=== PATIENT | male | born 1995 | race African-American/Black ===

== ENCOUNTER 2022-01-30 07:57 | Inpatient (IN) | payer OTHER ==
[~2022-01-30] VITALS: Ht 170.2 cm; Wt 54.4 kg
[2022-01-30 07:58] VITALS: BP 152/85
--- NOTE | 2022-01-30 07:59 | NUR ---
NAVEED MEEHAN VIA GURNEY TO BED 01.
--- NOTE | 2022-01-30 08:00 | NUR ---
DR GUERRERO AT BEDSIDE EVALUATING PT
--- NOTE | 2022-01-30 08:00 | NUR ---
27 Y/O MALE BIBA C/O GENERALIZED BODY RASH W/ MULTIPLE PUSTULES ALL OVER BODY X2 DAYS. PT REPORTS SKIN WAS CLEAR X2DAYS AGO EXCEPT FOR PIMPLES ON HIS FOREHEAD WHICH HE POPPED ON MONDAY. PT STATES HE WOKE UP THIS MPORNING WITH BODY COVERED IN RASH. PT REPORTS SUBJECTIVE FEVER/CHILLS. PT DENIES N/V/D. PT DENIES TAKING ANY MEDICATION PRIOR TO ARRIVAL. PMH: ASTHMA MEDS: DENIES NKA
[2022-01-30] MEDS ORDERED: KETOROLAC 15 MG/ML VIAL IVP ONE (08:10)
[2022-01-30] MEDS ORDERED: NACL 0.9% 1,000 ML IV ONE (08:10)
[2022-01-30] MEDS ORDERED: MORPHINE SULFATE 4 MG/ML SYR IVP ONE ×2 (08:10→10:45)
--- NOTE | 2022-01-30 08:22 | NUR ---
offered pt a urinal
--- NOTE | 2022-01-30 08:34 | NUR ---
XR AT BEDSIDE
[2022-01-30 08:53] LABS: BASOPHILS % (AUTO) 0.2 % (0.0-2.0); EOSINOPHILS % (AUTO) 0.1 % (0.0-4.0); HEMATOCRIT 46.3 % (36-52); HEMOGLOBIN 15.4 g/dL (12.0-18.0); LYMPHOCYTES # (AUTO) 0.5 K/uL (2.0-11.5); LYMPHOCYTES % (AUTO) 2.9 % (20.5-51.1); MEAN CORPUSCULAR HEMOGLOBIN 30 pg (27-31); MEAN CORPUSCULAR HGB CONC 33 g/dL (33-37); MEAN CORPUSCULAR VOLUME 90.1 fL (80-94); MONOCYTES % (AUTO) 5.7 % (1.7-9.3); NEUTROPHILS # (AUTO) 15.5 K/uL (1.8-7.7); NEUTROPHILS % (AUTO) 91.1 % (42.2-75.2); PLATELET COUNT (AUTO) 232 K/uL (140-450); RED BLOOD CELL COUNT(AUTO) 5.14 MIL/uL (4.20-6.10); RED CELL DISTRIBUTION WIDTH 13.4 % (11.6-13.7)
[2022-01-30 09:04] LABS: ALBUMIN 3.6 g/dL (3.4-5.0); CARBON DIOXIDE 27.6 mmol/L (21-32); CREATININE 1.1 mg/dL (0.6-1.3); POTASSIUM 3.6 mmol/L (3.5-5.1); TOTAL BILIRUBIN 0.7 mg/dL (0.0-1.0)
[2022-01-30 10:36] LABS: BILIRUBIN,URINE NEGATIVE (NEGATIVE); BLOOD, URINE 2+ (NEGATIVE); COLOR,URINE YELLOW (YELLOW); LEUKOCYTE ESTERASE ,URINE NEGATIVE (NEGATIVE); NITRITE, URINE NEGATIVE (NEGATIVE); UGLUCOSE NEGATIVE (NEGATIVE)
[2022-01-30 10:39] LABS: APPEARANCE,URINE HAZY (CLEAR)
[2022-01-30] MEDS ORDERED: predniSONE 20 MG TAB PO ONE (10:45)
[2022-01-30 10:48] LABS: RBC,URINE 0-5 /HPF (0-5); WBC,URINE NONE SEEN /HPF (0-5)
[2022-01-30 10:49] LABS: URINE AMORPHOUS URATE 1+ /HPF (None Seen)
[2022-01-30 10:53] LABS: BARBITURATE, URINE NEGATIVE ng/ml (NEG <=200); BENZODIAZEPINE, URINE NEGATIVE ng/mL (NEG <=200); CANNABINOID, URINE POSITIVE ng/mL (NEG <=50); COCAINE, URINE NEGATIVE ng/mL (NEG <=300); OPIATE, URINE POSITIVE ng/mL (NEG <=2000); PHENCYCLIDINE SCREEN,URINE NEGATIVE ng/mL (NEG <=25)
[2022-01-30] MEDS ORDERED: ceFAZolin 1,000 MG VIAL ONE (10:54)
[2022-01-30] MEDS ORDERED: ONDANSETRON 4 MG/2 ML VIAL IVP PRN (11:20)
[2022-01-30] MEDS ORDERED: ACETAMINOPHEN 325 MG TAB PO PRN (11:20)
[2022-01-30] MEDS ORDERED: PIPERACILLIN/TAZOBACTAM 3.375 GM in DEXTROSE 5% 50 ML IV SCH (13:00)
[2022-01-30] MEDS ORDERED: PIPERACILLIN/TAZOBACTAM 3.375 GM VIAL IV ONE (13:25)
--- NOTE | 2022-01-30 13:56 | NUR ---
Patient will be admitted to care of . Admited to MED SURG. Will go to[facility] A. Belongings list completed. Report to HAROON HONEYCUTT.
[2022-01-30 16:00] VITALS: BP 118/73
[2022-01-30] MEDS ORDERED: VANCOMYCIN PER PHARMACY MC PRN (17:45)
[2022-01-30] MEDS ORDERED: VANCOMYCIN 1,000 MG in DEXTROSE 5% 250 ML IV SCH (17:55)
--- NOTE | 2022-01-30 18:03 | NUR ---
RECEIVED ENDORSEMENT FROM ER NURSE RICARDO THAT PATIENT AMBULATORY W/ PIV RAC 18G FOR ANTIBIOTIC THERAPY. NO ACUTE DISTRESS NOTED.
--- NOTE | 2022-01-30 19:30 | NUR ---
RECEIVED PT FROM DAY SHIFT NURSE FOR CONTINUITY OF CARE. PT A&O X 4. PT ON ROOM AIR, WITH BREATHING EQUAL AND UNLABORED.GENERALIZED BODY RASH NOTED. PT REPORTS PAIN UPON MOVEMENT BUT TOLERABLE. NO OTHER COMPLAIN AT THIS TIME. ALL PRECAUTIONS IN PLACE.CALL LIGHT WITHIN REACH. WILL CONTINUE TO MONITOR.
--- NOTE | 2022-01-30 19:30 | NUR ---
ENDORSE PT TO PM SHIFT NURSE W/ PATIENT REST IN BED, PIV RAC 18G PATENT.
[2022-01-30 20:00] VITALS: BP 120/71
[2022-01-30] MEDS: PIPERACILLIN/TAZOBACTAM 3.375 GM in DEXTROSE 5% 50 ML IV SCH (21:38)
--- NOTE | 2022-01-30 21:45 | NUR ---
DUE ANTIBIOTICS GIVEN. PT TOLERATED WELL.CALL LIGHT WITHIN REACH. WILL CONTINUE TO MONITOR.
[2022-01-30] MEDS ORDERED: VANCOMYCIN 1,000 MG VIAL ONE (21:49)
--- NOTE | 2022-01-30 22:00 | NUR ---
PT CLEANED AND BEDDINGS CHANGED. PT POSITIONED FOR COMFORT. CALL LIGHT WITHIN REACH. WILL CONTINUE TO MONITOR.
--- NOTE | 2022-01-30 22:15 | NUR ---
VANCO GIVEN PER MD ORDER. PT TOLERATED WELL. NO ADVERSE DRUG REACTION NOTED. WILL CONTINUE TO MONITOR.
--- NOTE | 2022-01-31 00:08 | NUR ---
PT ASLEEP. BREATHING EQUAL AND UNLABORED. NO DISTRESS NOTED. CALL LIGHT WITHIN REACH.WILL CONTINUE TO MONITOR.
[2022-01-31] MEDS: PIPERACILLIN/TAZOBACTAM 3.375 GM in DEXTROSE 5% 50 ML IV SCH ×3 (05:15→20:11)
--- NOTE | 2022-01-31 05:15 | NUR ---
DUE ANTIBIOTICS GIVEN. PT TOLERATED WELL. NO DISTRESS NOTED.
--- NOTE | 2022-01-31 06:28 | NUR ---
PT IS STABLE. NO ACUTE EVENTS THROUGHOUT THE NIGHT. ALL NEEDS ATTENDED. NO S/SX OF DISTRESS NOTED. BREATHING EQUAL AND UNLABORED. ALL PRECAUTIONS IN PLACE. CALL LIGHT WITHIN REACH. WILL ENDORSE TO AM SHIFT NURSE.
--- NOTE | 2022-01-31 07:15 | NUR ---
RECEIVED REPORT FROM ALIGNER NURSE FOR CONTINUITY OF CARE. PT IN BED RESTING AT THIS TIME. RESPIRATIONS ARE EVEN AND UNLABORED ON ROOM AIR. NO SIGNS OF DISTRESS NOTED. PT IS ALERT AND ORIENTED X4, ABLE TO VERBALIZE NEEDS, ABLE TO FOLLOW COMMANDS. PT IS ON REGULAR DIET, ABD IS NONTENDER, NONDISTENDED WITH BOWEL SOUNDS PRESENT. PER ALIGNER NURSE, LAST BOWEL MOVEMENT STATED BY PT WAS 01/29/22. PT IS CONTINENT OF BOWEL AND BLADDER. ABLE TO AMBULATE TO REST ROOM INDEPENDENTLY. PT HAS IV TO R AC 18G, INTACT AND PATENT. PT SKIN IS WARM AND DRY. GENERALIZED BODY RASH NOTED. CALL LIGHT WITHIN REACH. ALL SAFETY MEASURES IN PLACE. WILL CONTINUE TO MONITOR.
[2022-01-31 08:00] VITALS: BP 120/77
--- NOTE | 2022-01-31 08:00 | NUR ---
Patient's Plan of Care was discussed and reviewed with Tamar BAILEY
--- NOTE | 2022-01-31 08:34 | NUR ---
PATIENT HAS BEEN SCREENED AND CATEGORIZED LOW NUTRITION RISK. PATIENT WILL BE SEEN WITHIN 7 DAYS OF ADMISSION. 02/05/[address]
[2022-01-31] MEDS: ENOXAPARIN 40 MG/0.4 ML SYR SUBQ SCH (08:58)
--- NOTE | 2022-01-31 08:58 | NUR ---
ADMINISTERED ALL SCHEDULED MEDICATIONS. EDUCATED PT ON MEDS ADMINISTERED. PT VERBALIZED UNDERSTANDING. WILL CONTINUE TO MONITOR.
[2022-01-31] MEDS ORDERED: POTASSIUM CHLORIDE 10 MEQ TABER PO SCH (09:00)
[2022-01-31] MEDS: VANCOMYCIN 750 MG in DEXTROSE 5% 250 ML IV SCH ×2 (10:51→21:45)
[2022-01-31] MEDS: HYDROcodone/APAP 5/325 MG 1 TAB TAB PO PRN ×2 (11:53→19:54)
--- NOTE | 2022-01-31 11:54 | NUR ---
PT COMPLAINING OF PAIN. STATES PAIN IS 6/10. MEDICATED. WILL CONTINUE TO MONITOR.
[2022-01-31 16:00] VITALS: BP 116/63
--- NOTE | 2022-01-31 16:05 | NUR ---
DC PLANNING PATIENT IS A 27 YR OLD WHO PRESENTED TO [facility]/ED ON 01/30/22 FOR PAINFUL RASH ALL OVER BODY. SW MET WITH PATIENT AT BEDSIDE FOR THE PURPOSE OF DISCUSSING AND GATHERING COLLATERAL INFORMATION. PATIENT REPORTS LIVING AT THE HOME LISTED WITH HIS PATERNAL UNCLE. PATIENT REPORTS EMERGENCY CONTACT AND MEDICAL DECISION MAKER MARIANNA MEADE . SW INQUIRED ON A.D; PATIENT DENIED A.D IN PLACE. SW PROVIDED PATIENT WITH INFORMATION ON A.D, PATIENT WAS RECEPTIVE HOWEVER, DECLINED A.D PACKET. PATIENT REPORTS BEING SEMI CONSISTENT WITH PCP VISITS. PATIENT REPORTS LAST VISIT TO PCP WAS ONE MOTH PRIOR. PATIENT REPORTS SEEING A DR. (PT. UNABLE TO RECALL NAME) AT [address] [place] [address] WHO SPECIALIZES IN [facility]. SW SPOKE TO PATIENT ABOUT THE IMPORTANCE OF FOLLOW UP CARE, PATIENT WAS RECEPTIVE. SW REQUESTED PERMISSION TO SCHEDULE FOLLOW UP APPT, PATIENT REPORTED THAT HE WOULD THINK ABOUT IT. PATIENT REPORTS BEING AMBULATORY/INDEPENDENT WITHOUT DME ASSISTANCE. PATIENT REPORTS UNCLE WILL PHYTOPATHOLOGY TEACHER AND AID IN HIS CARE IF NEEDED. AT THIS TIME, PATIENTS PLAN IS TO DC HOME. PATIENT DENIES BARRIERS IN SEEKING MEDICATION AND RECEIVES MEDICATION FROM [facility], WHEN NEEDED. SW INQUIRED ON ADDITIONAL RESOURCES NEEDED, PATIENT DECLINED AT THIS TIME.
[2022-01-31] MEDS: ACYCLOVIR 800 MG TAB PO SCH (17:19)
[2022-01-31] MEDS ORDERED: MELATONIN 3 MG TAB PO PRN (18:40)
--- NOTE | 2022-01-31 19:10 | NUR ---
ENDORSED PT TO PHYSICIAN ASSISTANT SURGERY NURSE FOR CONTINUITY OF CARE. ALL NEEDS MET THROUGHOUT SHIFT. PT IS STABLE.
--- NOTE | 2022-01-31 19:20 | NUR ---
RECEIVED BEDSIDE REPORT FROM DAY SHIFT RN FOR CONTINUITY OF CARE. PT IS AWAKE IN BED. PT IS NOT IN ANY ACUTE DISTRESS. BREATHING EVEN AND UNLABORED ON RA. PT HAS RASHES ALL OVER BODY. PT HAS GAUZE ON HIS FOREHEAD. PT STATES HE IS NOT ABLE TO MOVE WELL BECAUSE IT IS PAINFUL TO MOVE WITH RASHES. NO OTHER COMPLAINS. CALL LIGHT WITHIN REACH. ALL SAFETY MEASURES TAKEN. WILL CONTINUE TO MONITOR THE PT.
[2022-01-31 20:00] VITALS: BP 142/91
[2022-01-31] MEDS: TRIAMCINOLONE 0.025% CRM 15 GM TUBE TP SCH (20:19)
--- NOTE | 2022-01-31 20:22 | NUR ---
PT COMPLAIN OF PAIN AND WANTED SOMETHING FOR SLEEP. NORCO AND MELATONIN WAS GIVEN PER MD ORDER. PT COMPLAIN OF DOCTOR NOT GIVING HIM ANYTHING FOR HIS SKIN. SAW THE PT HAD KENALOG CREAM ORDERED FOR 0900 FOR 02/01/22. MESSAGED DR. MARK IF ITS OKAY TO GIVE IT EARLY TODAY. DR. MARK SAID IT IS OKAY. KENALOG WAS ADMINISTER IN MOST OF PT BODY EXCEPT HIS LEFT LEG, ABD, BACK, BOTH ARMS WHICH THE PT REFUSED TO HAVE IT. IT WAS GIVEN ON HIS NECK, CHEST, RIGHT LEG, AND BOTH SHOULDERS WHERE HE WAS OKAY WITH IT. NO OTHER COMPLAINS FROM THE PT. NO ADVERSE REACTION NOTED. WILL CONTINUE TO MONITOR THE PT.
[2022-02-01] MEDS: HYDROcodone/APAP 5/325 MG 1 TAB TAB PO PRN (00:47)
--- NOTE | 2022-02-01 00:50 | NUR ---
PT COMPLAIN OF PAIN. NORCO WAS GIVEN PER MD ORDER AND PT REQUESTED. NO FURTHER COMPLAINS FROM THE PT. WILL CONTINUE TO MONITOR THE PT.
--- NOTE | 2022-02-01 01:20 | NUR ---
PT WAS HELPED TO BEDSIDE COMMODE. PT WAS UNABLE TO HAVE BOWEL MOVEMENT. PT WAS HELPED BACK TO BED. NO OTHER COMPLAINS FROM THE PT. WILL CONTINUE TO MONITOR THE PT. Addendum: 02/01/22 at 0212 by Liam Arellano RN WRONG PT
[2022-02-01 04:00] VITALS: BP 130/74
[2022-02-01] MEDS: PIPERACILLIN/TAZOBACTAM 3.375 GM in DEXTROSE 5% 50 ML IV SCH (04:11)
--- NOTE | 2022-02-01 04:17 | NUR ---
PT IS SLEEPING IN BED COMFORTABLY. PT IS NOT IN ANY DISTRESS. BREATHING EVEN AND UNLABORED. CALL LIGHT WITHIN REACH. ALL SAFETY MEASURES TAKEN. WILL CONTINUE TO MONITOR THE PT.
--- NOTE | 2022-02-01 07:14 | NUR ---
ENDORSED PT TO DAY SHIFT RN FOR CONTINUITY OF CARE. ALL NEEDS MET. PT IS STABLE.
--- NOTE | 2022-02-01 07:15 | NUR ---
RECEIVED REPORT FROM GIZZARD PULLER NURSE FOR CONTINUITY OF CARE. PATIENT ASLEEP BUT ABLE TO WAKE UP AND RESPONDS VERBALLY . RESPIRATION EVEN AND NOT LABORED. ON ROOM AIR. IV SITE ON RIGHT AC KELLE 18 SALINE LOCK. CALL LIGHT WITH IN EASY REACH.
--- NOTE | 2022-02-01 08:00 | NUR ---
Patient's Plan of Care was discussed and reviewed with Meche BAILEY
[2022-02-01] MEDS: ACYCLOVIR 800 MG TAB PO SCH ×2 (09:48→13:47)
[2022-02-01] MEDS: TRIAMCINOLONE 0.025% CRM 15 GM TUBE TP SCH (09:48)
[2022-02-01] MEDS: ENOXAPARIN 40 MG/0.4 ML SYR SUBQ SCH (09:53)
--- NOTE | 2022-02-01 09:55 | NUR ---
ADMINISTERED ALL MORNING MEDS. EDUCATED ABOUT ALL MEDS. PT VERBALIZED UNDERSTANDING. PT TOLERATED WELL. WILL CONTINUE TO MONITOR.
--- NOTE | 2022-02-01 10:00 | NUR ---
DR YAO AT PT BED SIDE.
[2022-02-01 10:39] LABS: ANION GAP 9.9 (8-16); CARBON DIOXIDE 29.1 mmol/L (21-32); CREATININE 0.9 mg/dL (0.6-1.3)
[2022-02-01 10:51] LABS: BASOPHILS % (AUTO) 0.5 % (0.0-2.0); EOSINOPHILS # (AUTO) 0.5 K/uL (0-0.4); EOSINOPHILS % (AUTO) 8.5 % (0.0-4.0); HEMATOCRIT 45.8 % (36-52); HEMOGLOBIN 15.2 g/dL (12.0-18.0); LYMPHOCYTES # (AUTO) 0.7 K/uL (2.0-11.5); LYMPHOCYTES % (AUTO) 10.5 % (20.5-51.1); MEAN CORPUSCULAR HEMOGLOBIN 30 pg (27-31); MEAN CORPUSCULAR HGB CONC 33 g/dL (33-37); MONOCYTES # (AUTO) 0.4 K/uL (0.8-1.0); MONOCYTES % (AUTO) 6.8 % (1.7-9.3); NEUTROPHILS # (AUTO) 4.6 K/uL (1.8-7.7); NEUTROPHILS % (AUTO) 73.7 % (42.2-75.2); PLATELET COUNT (AUTO) 240 K/uL (140-450); RED BLOOD CELL COUNT(AUTO) 5.09 MIL/uL (4.20-6.10); RED CELL DISTRIBUTION WIDTH 13.3 % (11.6-13.7); WHITE BLOOD COUNT (AUTO) 6.2 K/uL (4.8-10.8)
[2022-02-01] MEDS ORDERED: VANCOMYCIN 750 MG in DEXTROSE 5% 250 ML IV SCH (11:11)
--- NOTE | 2022-02-01 11:26 | NUR ---
VANCOMYCIN ADMINISTERED BY
--- NOTE | 2022-02-01 11:41 | NUR ---
DR MARK AT BEDSIDE DISCUSSING ABOUT PLAN OF CARE.
[2022-02-01] MEDS ORDERED: CEPH-588 PO (11:53)
[2022-02-01] MEDS ORDERED: KEN.1C80 TP (11:54)
[2022-02-01] MEDS ORDERED: ACYC400T14 PO (11:56)
[2022-02-01 12:56] VITALS: BP 119/69
--- NOTE | 2022-02-01 13:30 | NUR ---
DC PLANNING LATE ENTRY, PATIENT WAS SEEN AT 1230PM SW MET WITH PATIENT AT BEDSIDE TO PROVIDE PATIENT WITH ADDITIONAL RESOURCES. SW SPOKE WITH PATIENT ABOUT HOUSING STATUS PATIENT HAD INDICATED THAT HE RESIDED WITH PATERNAL UNCLE, AT INITIAL ASSESSMENT.PATIENT REPORTED THAT HE TYPICALLY HAS A PLACE TO STAY ([facility]; WHERE HE VOLUNTEERS) AND TYPICALLY STAYS AT HOTELS ON THE WEEKENDS. PATIENT REPORTED THAT HE WAS SPEAKING WITH HIS UNCLE AND/OR HIS PEOPLE TO ARRANGE FOR [facility]. SW PROVIDED PATIENT WITH HOMELESS RESOURCES AND SUBSTANCE USE RESOURCES PATIENT TESTED POSITIVE FOR OPIATES AND CANNABIS. PATIENT DENIED SUBSTANCE USE AND REPORTED THAT HE RECEIVED VICODIN FOR PAIN SINCE BEING ADMITTED. PATIENT ACCEPTED BOTH RESOURCES AND DENIED HAVING FURTHER QUESTIONS.
--- NOTE | 2022-02-01 14:04 | NUR ---
SPOKE TO ARMY MANAGER REGARDING PLACEMENT ASSISTANCE. WAS TOLD THAT THEY WILL COME TO THE UNIT AND TALK TO THE PT.
--- NOTE | 2022-02-01 15:47 | NUR ---
DC PLANNING SW WAS CALLED BY RN TO MEET WITH PATIENT TO PROVIDE ADDITIONAL RESOURCES. SW MET WITH PATIENT TO DISCUSS DC PLANS, PATIENT HAD REPORTED EARLY IN THE AFTERNOON, HE WAS ARRANGING PICKUP WITH UNCLE. PATIENT REPORTED PLANS W/ UNCLE HAD FALLEN THROUGH AND HAD NO WHERE TO GO. SW PROVIDED PATIENT WITH ADDITIONAL RESOURCES THAT INCLUDED EMERGENCY ASSISTANCE PROGRAMS AND [facility] SOCIAL [facility] PROGRAMS. SW HIGHLIGHTED ADDITIONAL RESOURCES IN PACKETS GIVEN TO PATIENT. SW PROVIDED PATIENT WITH EDUCATION ON SHELTERS, ROOM AND BOARDS. PATIENT REPORTED HE'D MAKE ARRANGEMENTS TO FIND ASSISTED WHEN DC
--- NOTE | 2022-02-01 16:00 | NUR ---
DISCHARGE PAPER DISCUSSED WITH THE PT. PT ASKED QUESTIONS. VERBALIZED UNDERSTANDING AND SIGNED. HELPED PT GET READY TO LEAVE. REMOVED IV CATHETER IS INTACT. REMOVED WRIST BAND. ALL BELONGINGS TAKEN UPON D/C. PT WALKED OUT BY THE NURSES. PT IS STABLE.
== END 2022-02-01 16:00 | disposition home or self-care (01) | DRG 383 ==
LOC: MED 07:57 → MTU 11:21
PROVIDERS: ADMIT Hospitalist; ATTEND Hospitalist
DX: L03.211 Cellulitis of face (principal); R21 Rash and other nonspecific skin eruption; Z20.822 Contact with and (suspected) exposure to COVID-19; Z86.19 Personal history of other infectious and parasitic diseases; Z59.00 Homelessness unspecified; Z68.1 Body mass index [BMI] 19.9 or less, adult
CPT/HCPCS: 36415; 71045; 80048; 80053; 80202; 80305; 81001; 83605; 85025; 87040; 87081; 87086; 96361; 96365; 96375; 96376; 99285; J0690; J1650; J1885; J2270; J2543; J3370; J7030; J7060; J7512; Q0092